=== PATIENT | female | born 1990 | race Caucasian/White ===

== ENCOUNTER 2016-10-02 11:37 | Emergency (ER) | payer OTHER ==
[2016-10-02 11:37] VITALS: BMI 31.7
[2016-10-02 12:24] VITALS: TEMP 99
[2016-10-02] MEDS ORDERED: Albuterol-Ipratrop 3 mg / 0.5 (3 ml) UD INH STA (12:32)
[2016-10-02] MEDS ORDERED: Albuterol-Ipratrop 3 mg / 0.5 (3 ml) UD ONE (12:36)
--- NOTE | 2016-10-02 12:54 | C.PDOC ---
History Of Present Illness 25 y/o F c no PMHx p/w cough x 4 days. She states she hears a whistling noise at night time. She denies any history of asthma or inhaler use. Denies fever, sick contacts, recent travel, vomiting. Time Seen by Provider: 10/02/16 12:17 Chief Complaint (Nursing): Cough, Cold, Congestion Past Medical History Vital Signs: Last Vital Signs Temp 99 F 10/02/16 12:21 Pulse 85 10/02/16 12:21 Resp 18 10/02/16 12:21 BP 126/83 10/02/16 12:21 Pulse Ox 97 10/02/16 12:54 - Medical History PMH: Migraine Denies: Chronic Kidney Disease - [facility] Procedures CLOSURE SKIN & SUBCUTANEOUS NEC (11/02/13) TETANUS TOXOID ADMINIST (11/02/13) Family History: States: Unknown Family Hx - Social History Hx Tobacco Use: No Hx Alcohol Use: No Hx Substance Use: No - Immunization History Hx Tetanus Toxoid Vaccination: No Hx Influenza Vaccination: No Hx Pneumococcal Vaccination: No Review Of Systems Except As Marked, All Systems Reviewed And Found Negative. Constitutional: Negative for: Fever Respiratory: Positive for: Cough Physical Exam - Physical Exam Appears: Non-toxic, No Acute Distress Skin: Normal Color Head: Atraumatic, Normacephalic Oral Mucosa: Moist Throat: No Erythema, No Exudate, Mass (Small mass hanging from uvula, patient states has always had) Neck: Supple Cardiovascular: Rhythm Regular Respiratory: No Stridor, Wheezing (diffuse) Gastrointestinal/Abdominal: Soft, No Tenderness Extremity: No Tenderness, No Swelling Pulses: Left Radial: Normal, Right Radial: Normal Neurological/Psych: Normal Speech, Normal Cognition Gait: Steady ED Course And Treatment O2 Sat by Pulse Oximetry: 97 Medical Decision Making Medical Decision Making: Will treat patient with nebulizer for wheezing and check CXR to exclude PNA. CXR shows no aute disease. Patient feels better. Will discharge home, f/u PMD, return to ER for worsening pain, dyspnea, fever, or any other problem. Disposition - Disposition Disposition: HOME/ ROUTINE Disposition Time: 14:29 Condition: STABLE Prescriptions: Albuterol HFA [Ventolin HFA 90 mcg/actuation (8 g)] 2 puff IH Q6 #1 inhaler Instructions: Upper Respiratory Infection (ED) Forms: Work Excuse - Clinical Impression Clinical Impression: Upper respiratory infection
--- NOTE | 2016-10-02 14:26 | RAD ---
HISTORY: wheezing, cough COMPARISON: No prior. TECHNIQUE: Chest PA and lateral FINDINGS: LUNGS: No active pulmonary disease. PLEURA: No significant pleural effusion identified. No pneumothorax apparent. CARDIOVASCULAR: Normal. OSSEOUS STRUCTURES: No significant abnormalities. VISUALIZED UPPER ABDOMEN: Normal. OTHER FINDINGS: None. IMPRESSION: No active disease.
[2016-10-02 14:41] VITALS: BP 114/78; PULSE 89; RESP 20; O2SAT 96
== END 2016-10-02 14:41 | disposition home or self-care (01) ==
LOC: C.ER 11:37
DX: J06.9 Acute upper respiratory infection, unspecified (principal)